=== PATIENT | male | born 1950 | race Caucasian/White ===

== ENCOUNTER 2018-11-30 04:59 | Inpatient (IN) ==
--- NOTE | 2018-11-20 18:38 | PAT Medication Instructions ---
Medication Instructions Date of Service November 20, 2018 Home Medications Arginine 1 dose PO QPM Cbd Oil 1 dose PO BID D [place] 1 dose PO DAILY Ips 1 dose PO BID P5p 1 dose PO QAM Serine Powder 1 dose PO DAILY glycine 4 cap PO QAM multivitamin 1 tab PO QAM niacinamide 500 mg PO DIRECTED zinc citrate-phytase 1 dose PO QPM STOP taking 2 weeks before surgery Arginine 1 dose PO QPM D [place] 1 dose PO DAILY Ips 1 dose PO BID P5p 1 dose PO QAM Serine Powder 1 dose PO DAILY glycine 4 cap PO QAM niacinamide 500 mg PO DIRECTED zinc citrate-phytase 1 dose PO QPM DO NOT take the morning of surgery multivitamin 1 tab PO QAM Take morning of surgery With a small sip of water, OTHERWISE NOTHING TO EAT OR DRINK AFTER MIDNIGHT: Cbd Oil 1 dose PO BID (stop 4 hours before surgery) Take evening before surgery Cbd Oil 1 dose PO BID Other Notes If you have any questions please call us at [phone] or [phone] or [phone] or [phone]
--- NOTE | 2018-11-21 13:59 | Anesthesiology Consultation ---
Date of Service November 21, 2018 Assessment & Plan (1) Encounter for pre-operative examination: Chart Review Chart Review: Acceptable Risk for Surgery and Patient seen in Pre Admission Testing Consults Requested none Teaching & Discussion Pre-Anesthesia Teaching/Discussion Notes: Instructed NPO after midnight before surgery, except medications with 15 cc of water. Medication instructions provided according to the PAT guidelines. History Surgery Operation Date: 11/30/18 08:20 Proposed Procedures p Left Total Hip Arthroplasty - Terry Roland MD Height/Weight Height: 5 ft 10 in Weight: 79.9 kg Allergies Allergy/AdvReac Type Severity Reaction Status Date / Time No Known Allergies Allergy Verified 11/09/18 10:22 Medications Home Medications Medication Instructions Recorded Confirmed Last Taken Arginine 1 dose PO QPM 11/09/18 11/09/18 Unknown Cbd Oil 1 dose PO BID 11/09/18 11/09/18 Unknown D [place] 1 dose PO DAILY 11/09/18 11/09/18 Unknown Ips 1 dose PO BID 11/09/18 11/09/18 Unknown P5p 1 dose PO QAM 11/09/18 11/09/18 Unknown Serine Powder 1 dose PO DAILY 11/09/18 11/09/18 Unknown glycine 4 cap PO QAM 11/09/18 11/09/18 Unknown multivitamin 1 tab PO QAM 11/09/18 11/09/18 Unknown niacinamide 500 mg PO UD 11/09/18 11/09/18 Unknown zinc citrate-phytase 1 dose PO QPM 11/09/18 11/09/18 Unknown Past Medical History Medical History Cognitive impairment [place] to be due to previous testing for prostate cancer per his trimmer sorter Degenerative disc disease Diverticular disease Prostate cancer s/p radioactive seed implants Past Surgical History Surgical History History of anesthesia reaction slow to wake History of colonoscopy History of fusion of cervical spine ROM WNL History of herniorrhaphy umbilical and rt inguinal History of oral surgery History of prostate biopsy History of tooth extraction Past Anesthesia History No Hx of Anesthesia Complications (A little slow to wake after hernia repair. ) and No Family Hx of Anesthesia Complications (Dad had hallucinations after anesthesia) History of PONV No Motion Sickness Screening History of Motion Sickness: No Social History Smoking Status: Never smoker Do You Dip or Chew Tobacco: No Hx Alcohol Use: Yes alcohol intake frequency: holidays/special occasions only Hx Substance Use: No substance use type: does not use Exercise / Class Metabolic Activity II 4-5 Yardwork/Stairs/Walk up hill (Able to climb stairs. Denies CP or SOB. ) Review of Systems Patient denies chest pain, shortness of breath, dyspnea on exertion, reflux, cough, wheezing, palpitations. +joint pain (hip) Physical Exam Vital Signs BP: 124/78 P: 70 R: 14 T: 98.2 SPO2: 96% on RA ENMT Thyromental Distance: > or= 3.5 Finger Breadths (3.5) Mallampati Class: II Neck normal visual inspection and trachea midline; neck extension not limited Respiratory normal respiratory effort Auscultation: lungs clear to auscultation bilaterally Cardiovascular Rate/Rhythm: regular rate and regular rhythm Heart Sounds: no murmur Vessels: no carotid bruit Neurologic moves all extremities Psychiatric Orientation: alert and oriented x 3 Testing Electrocardiogram Date: 11/21/18 Findings: + NSR @ (65) Chest X-Ray Date: 11/21/18 Findings: + NAD Echocardiogram Date: 01/12/16 EF: 61% LV Function: normal RWMA: + none Valvular Disease: + no significant valvular disease and + MR (Trivial) Trivial Tricuspid Insufficiency. Stress Test Date: 01/19/16 Type: exercise Findings: + WNL Resting EF: 67% Exercise stress administered by the physician. Technetium - sestamibi was also administered. SPECT images were obtained in numerous axes. Lang study was performed with the stress examination and careful evaluation of the wall motion was performed. Resting EKG was normal. Target HR was 140. MPHR was 157. Cardiorespiratory fitness would be considered good. IMPRESSION: 1. Normal Study. No evidence of myocardial necrosis or stress induced ischemia, and no transient ischemic dilatation of the left ventricular cavity with stress. 2. The global EF of the LV is 67%. CONCLUSION: -The patient is able to exercise to target HR with some J-point depression during the study, but with slowly upsloping ST segments which would be considered negative for coronary ischemia and a low probablitity of significant coronary artery disease. His BP response to exercise is normal. Laboratory Results 11/21/18 13:35 11/21/18 13:35 Blood Type A Positive 11/21/18 13:35 Antibody Screen NEGATIVE 11/21/18 13:35 PT 10.6 Seconds (9.0-12.0) 11/21/18 13:35 INR 1.1 (0.9-1.1) 11/21/18 13:35 APTT 26.8 Seconds (21.0-31.0) 11/21/18 13:35 Hemoglobin A1c 5.7 % (4.5-5.6) H 11/21/18 13:35 Urine Color Yellow 11/21/18 Unknown Urine Appearance Clear (Clear) 11/21/18 Unknown Urine pH 6.0 (4.5-7.5) 11/21/18 Unknown Ur Specific [place] 1.023 (1.000-1.030) 11/21/18 Unknown Urine Protein Negative (Negative) 11/21/18 Unknown Urine Glucose (UA) Negative (Negative) 11/21/18 Unknown Urine Ketones Negative (Negative) 11/21/18 Unknown Urine Nitrite Negative (Negative) 11/21/18 Unknown Ur Leukocyte Esterase Negative (Negative) 11/21/18 Unknown Urine WBC (Auto) 1-5 /hpf (0-5) 11/21/18 Unknown Urine RBC (Auto) 5-10 /hpf (0-4) H 11/21/18 Unknown U Hyaline Cast (Auto) 0 /lpf (0-5) 11/21/18 Unknown U Epithel Cells (Auto) 0-5 /lpf (0-5) 11/21/18 Unknown Urine Bacteria (Auto) Negative (Negative) 11/21/18 Unknown 11/21/18 Unknown Urine Culture - Preliminary Urine,Clean Catch No growth - Less than 1,000 colonies/mL, Final report to follow.
[2018-11-21 14:16] LABS: Basophils # (auto) 0.02 K/uL (0-0.2); Basophils % (auto) 0.4 %; Eosinophils # (auto) 0.08 K/uL (0-0.5); Eosinophils % (auto) 1.6 %; Hematocrit (blood only) 43.3 % (42-52); Hemoglobin 14.4 g/dL (14.0-18.0); Immature Granulocytes # (auto) 0.04 K/uL (0.00-0.02); Immature Granulocytes % (auto) 0.8 %; Lymphocytes # (auto) 1.42 K/uL (1.2-3.4); Lymphocytes % (auto) 28.3 %; Mean Corpuscular Hgb Conc 33.3 g/dL (32-36); Mean Corpuscular Volume 89.6 fL (80-100); Mean Platelet Volume 10.2 fL (7.4-10.4); Monocytes # (auto) 0.26 K/uL (0.11-0.59); Monocytes % (auto) 5.2 %; Neutrophils % (auto) 63.7 %; Platelet Count 221 K/uL (130-400); RDW Coefficient of Variation 13.9 % (11.5-14.5); RDW Standard Deviation 45.8 fL (36.4-46.3); Red Blood Count 4.83 M/uL (4.7-6.1); White Blood Count 5.02 K/uL (4.8-10.8)
[2018-11-21 14:29] LABS: Appearance Urine Clear (Clear); Bacteria Urine Automated Negative (Negative); Bilirubin Urine Negative (Negative); Cast Urine Automated 0 /lpf (0-5); Color Urine Yellow; Epithelial Cell Urine Auto 0-5 /lpf (0-5); Glucose Urine UA Negative (Negative); Ketones Urine Negative (Negative); Leukocyte Esterase Urine Negative (Negative); Nitrite Urine Negative (Negative); Protein Urine Negative (Negative); Specific Gravity Urine 1.023 (1.000-1.030); Urobilinogen Urine Negative (Negative)
[2018-11-21 14:35] LABS: Estimated Average Glucose 117 mg/dl
[2018-11-21 14:36] LABS: INR 1.1 (0.9-1.1); Partial Thromboplastin Time 26.8 Seconds (21.0-31.0); Prothrombin Time 10.6 Seconds (9.0-12.0)
--- NOTE | 2018-11-21 14:40 | XRay Report ---
XR chest Pre-admission PA/Lat HISTORY: Preop. COMPARISON: None. FINDINGS: The lungs are clear. Cardiac silhouette is normal in size. No pleural effusions. No pneumot horax. IMPRESSION: No acute process. Electronically signed by: Filemon Zaman M.D. 11/21/2018 2:39 PM
[2018-11-21 16:00] LABS: Albumin Level 3.5 gm/dl (3.4-5.0); BUN Creatinine Ratio 18.1 (10-20); Calcium 8.6 mg/dl (8.5-10.1); Creatinine Clr Calc Pharmacy 75.8 ml/min; Est GFR (African American) 91.6
--- NOTE | 2018-11-29 13:39 | History and Physical Report ---
DATE OF ADMISSION: 11/30/2018 CHIEF COMPLAINT: Left hip pain. HISTORY OF PRESENT ILLNESS: The patient is a 68-year-old male with known osteoarthritis about his left hip. He has been taken meloxicam for some time, but continues to have pain and disability with activities of daily living. He has pain with prolonged weightbearing and standing activities. He has difficulty with any kneeling, bending, or squatting activities. Due to ongoing pain and disability, he now desires to proceed with left total hip arthroplasty. PAST MEDICAL HISTORY: Prostate cancer. PAST SURGICAL HISTORY: Hernia surgery, prostate implants. MEDICATIONS: None. He takes a lot of [id number] medications. ALLERGIES: PENICILLIN IN CHILDHOOD. SOCIAL HISTORY AND REVIEW OF SYSTEMS: Noncontributory. PHYSICAL EXAMINATION: GENERAL: Well-nourished, well-developed male who appears stated age. HEENT: Normocephalic, atraumatic, extraocular movements intact, oropharynx pink and moist. NECK: Supple without adenopathy. LUNGS: Clear to auscultation bilaterally. HEART: Regular rate and rhythm. ABDOMEN: Soft, nontender, nondistended. EXTREMITIES: The upper extremities are within normal limits. Left hip demonstrates limited range of motion. There is limitation of active and passive internal/external rotation with pain at end range. X-RAYS: X-rays were reviewed. He has severe osteoarthritis about the left hip with complete loss of the joint space. There are large osteophytes about the femoral head. There is deformation about the femoral head. ASSESSMENT: Left hip degenerative joint disease. PLAN: Risks versus benefits were discussed, consent was obtained. The patient's primary care physician is Dr. Raghu Saez from [facility]. We will proceed with left total hip arthroplasty as indicated.
[2018-11-30] MEDS: LR 500ML BOLUS, THEN 15ML/HR IV SCH ×3 (05:40→09:51)
[2018-11-30] MEDS ORDERED: CeleBREX 200 MG CAP PO SCH (06:00)
[2018-11-30] MEDS ORDERED: CEFAZOLIN 2000MG 2,000 MG/15 ML SYR IV SCH (06:00)
[2018-11-30] MEDS ORDERED: ACETAMINOPHEN 500 MG TAB PO SCH (06:00)
[2018-11-30] MEDS ORDERED: ROPIVACAINE 0.5% HCL/PF 150 MG, BUPIVACAINE 0.5% MPF 30 ML, EPINEPHrine 30MG/30ML (OR U... INFIL SCH (06:00)
[2018-11-30] MEDS ORDERED: dexAMETHasone 4 MG TAB PO SCH (06:00)
[2018-11-30] MEDS ORDERED: TRANEXAMIC ACID 1,000 MG **IV Pre-op IV SCH (06:00)
[2018-11-30] MEDS ORDERED: VANCOMYCIN HCL 1,250 MG in SODIUM CHLORIDE 0.9% 250 ML IV SCH (06:00)
[2018-11-30] MEDS ORDERED: GABAPENTIN 300 MG PO SCH (06:00)
[2018-11-30] MEDS ORDERED: CEFAZOLIN 1000MG 1,000 MG/7.5 ML SYR IV SCH (06:00)
[2018-11-30] MEDS ORDERED: TRANEXAMIC ACID 1,000 MG **IV Intra-op IV SCH (06:30)
[2018-11-30] MEDS ORDERED: BUPIVACAINE 0.5 % 5 MG/1 ML PF 10ML VIAL ONE (06:31)
[2018-11-30] MEDS ORDERED: BACITRACIN INJ 50,000 UNIT VIAL ONE (06:32)
[2018-11-30] MEDS ORDERED: ORTHO JOINT ANESTHETIC ONE (06:32)
[2018-11-30] MEDS ORDERED: POVIDONE-IODINE OP SOLN 30 ML BTL ONE (06:32)
[2018-11-30] MEDS ORDERED: HYDROmorphone INJ 2 MG/ML SYR/VIAL IV PRN (06:44)
[2018-11-30] MEDS ORDERED: ePHEDrine sulfate 50 MG/ML AMP IV PRN (06:44)
[2018-11-30] MEDS ORDERED: ATROPINE SULFATE 0.1 MG/ML 10ML SYR IV PRN (06:44)
[2018-11-30] MEDS ORDERED: MIDAZOLAM HCL 1 MG/ML 2ML VIAL ONE ×2 (06:47→07:23)
[2018-11-30] MEDS ORDERED: fentaNYL citrate 100 MCG/2 ML VIAL ONE (06:47)
--- NOTE | 2018-11-30 07:05 | History & Physical Bridge Note ---
Date of Service November 30, 2018 History & Physical Bridge Note I have examined the patient, reviewed the History & Physical and in the interval since the performance of the History & Physical I have noted the following changes of clinical significance: no changes noted
[2018-11-30] MEDS ORDERED: ePHEDrine sulfate 50 MG/ML SYR ONE (07:41)
[2018-11-30] MEDS ORDERED: PROPOFOL IV EMULSION 10 MG/ML 20 ML VIAL IV ONE (07:41)
[2018-11-30] MEDS ORDERED: LIDOCAINE HCL 2% 2 ML VIAL/AMP(20MG/ML) INFIL ONE (07:41)
--- NOTE | 2018-11-30 08:08 | Operative Report ---
Post Operative Report Pre & Post Diagnosis Operation Date: 11/30/18 07:00 Pre-Op Diagnosis: Left Hip Degenerative Joint Disease Post-Op Diagnosis: Left Hip Degenerative Joint Disease Procedure Operation Date: 11/30/18 07:00 Actual Procedures p Left Total Hip Arthroplasty, Uncemented(Left) - Terry Roland MD Surgeon Terry Roland MD Public Services Assistant Arnold Estimated Blood Loss 100 Findings Consistent with Post-Op Diagnosis Specimens Femoral head Anesthesia Type Spinal Complications none Disposition Accompanied Patient To Recovery: No Disposition: Recovery Room Indications Hip pain Description of Procedure Patient was placed in the right lateral decubitus position and the left hip was prepped and draped in the usual sterile manner. A click along the back incision was made subcutaneous tissue was sharply dissected electrocautery was used for hemostasis. Fascia was incised throughout the length of the wound and the short external rotators were divided from the posterior aspect of the femur using electrocautery. A T capsulotomy incision was created and the hip was dislocated. The femoral neck was just osteotomized at the appropriate level using the oscillating saw and was removed. Next retractors were placed and the acetabulum was exposed. Labrum and capsule were removed and sequential reamings were good exposure of subchondral bone. The 6 femoral cup was impacted and held using a single cancellous bone screw. The elevated posterior wall liner was placed and attention was turned to the femur. A box osteotome was used to gain access to the femoral canal. A T-handled canal finder was utilized and sequential aspirins were taken up to a size 6 which gave good fit and fill. Trial reduction was carried out in a +25 femoral neck length was chosen size to be used. The final stem and head were impacted in position and the hip was located. Found to be exceptionally stable. The periarticular injection was carried out and the piriformis was reattached to the trochanter using a #1 Vicryl. The wound was again thoroughly irrigated and in the drain was placed in the fascia was closed using #1 Vicryl. Betadine soap was utilized. Fascia was closed #1 Vicryl. Suture subcutaneous tissue was closed using 0 Dexon skin was closed with 0 plain. Sterile dressing of Adaptic 4 x 4' s ABDs and foam tape was applied. Patient tolerated procedure well I attest to the content of the Intraoperative Record and any orders documented therein. Any exceptions are noted below.
[2018-11-30] MEDS ORDERED: BISACODYL 10 MG SUPP PR PRN ×2 (08:56→09:42)
[2018-11-30] MEDS ORDERED: MAGNESIUM HYDROXIDE SUSP 30 ML UDC PO PRN ×2 (08:56→09:42)
[2018-11-30] MEDS ORDERED: ONDANSETRON INJ 2 MG/ML 2 ML VIAL IV PRN ×2 (08:56→09:42)
[2018-11-30] MEDS ORDERED: ALUMINUM/MAGNESIUM SUSP 30 ML UDC PO PRN (08:56)
--- NOTE | 2018-11-30 09:37 | XRay Report ---
XR pelvis 1-2V routine CLINICAL HISTORY: Postoperative examination COMPARISON: None. DISCUSSION: There are postsurgical changes of a total left hip arthroplasty. There is no dislocation. There are no acute fractures. There is gas within soft tissues consistent with recent surgery. There is an overlying surgical drain. Incidental note is made of prostate implant radiation therapy seeds. There is also evidence for prior hernia mesh repair. IMPRESSION: Postsurgical changes of a total left hip arthroplasty. No evidence of dislocation Electronically signed by: Mehdi Alex M.D. 11/30/2018 9:36 AM
[2018-11-30] MEDS ORDERED: DOCUSATE SODIUM 100 MG CAP PO SCH (09:42)
[2018-11-30] MEDS ORDERED: MULTIVITAMIN TAB PO SCH (09:42)
[2018-11-30] MEDS ORDERED: HYDROmorphone INJ 0.5 MG/0.5 ML SYR IV PRN (09:42)
[2018-11-30] MEDS ORDERED: NALOXONE HCL 0.4 MG/1 ML VIAL/CARP IV PRN (09:42)
[2018-11-30] MEDS ORDERED: SODIUM CHLORIDE 0.9% 1000ML 1,000 ML IV SCH ×2 (09:42)
[2018-11-30] MEDS ORDERED: METOCLOPRAMIDE HCL INJ 5 MG/ML 2 ML VIAL IV PRN (09:42)
[2018-11-30] MEDS: DOCUSATE SODIUM 100 MG CAP PO SCH ×2 (10:53→20:47)
--- NOTE | 2018-11-30 11:06 | Anesthesiology Progress Note ---
Date of Service November 30, 2018 Anesthesia Post Procedure Vital Signs Vital Signs: Temp Pulse Pulse Resp BP Pulse Ox 11/30/18 10:56 36.3 C L 11/30/18 10:10 34.2 C L 62 18 124/82 99 11/30/18 09:45 65 18 119/76 100 11/30/18 08:55 36.8 C 62 16 106/68 99 11/30/18 08:45 65 16 106/66 98 11/30/18 08:35 68 16 104/64 100 11/30/18 08:27 37.1 C 68 16 97/65 L 100 11/30/18 05:46 36.8 C 61 20 155/94 H 98 Pain Intensity Left Hip: Pain Intensity: 2 Notes Mental Status: alert / awake / arousable Patient Amnestic to Procedure: Yes Nausea / Vomiting: adequately controlled Pain: adequately controlled Airway Patency, RR, SpO2: stable & adequate BP & HR: stable & adequate Hydration State: stable & adequate Anesthetic Complications: no major complications apparent and Pt Satisfied with anesthetic care
[2018-11-30] MEDS: MULTIVITAMIN TAB PO SCH (11:46)
[2018-11-30] MEDS: CEFAZOLIN 2000MG 2,000 MG/15 ML SYR IV SCH ×2 (14:25→21:43)
[2018-11-30] MEDS: ACETAMINOPHEN 500 MG TAB PO SCH ×2 (14:25→21:44)
[2018-11-30] MEDS ORDERED: PNEUMOCOCCAL POLYSACCHARIDES 25 MCG/0.5 ML VIAL/SYR IM ONE (14:30)
[2018-11-30] MEDS ORDERED: INFLUENZA VACCINE HIGH DOSE 65+ 0.5 ML SYR IM ONE (14:30)
[2018-11-30] MEDS ORDERED: INFLUENZA ADMINISTRATION CHARGE ONE (14:30)
[2018-11-30] MEDS ORDERED: PNEUMOCOCCAL ADMINISTRATION CHARGE ONE (14:30)
[2018-11-30] MEDS: ASPIRIN 81 MG ECTAB PO SCH (20:47)
[2018-11-30] MEDS ORDERED: SENNA 8.6 MG TAB PO SCH ×2 (21:00)
[2018-11-30] MEDS: OXYCODONE HCL IR 5 MG TAB (IMMEDIATE RELEASE) PO PRN (22:03)
[2018-12-01] MEDS: OXYCODONE HCL IR 5 MG TAB (IMMEDIATE RELEASE) PO PRN (00:05)
[2018-12-01] MEDS: ACETAMINOPHEN 500 MG TAB PO SCH (05:39)
[2018-12-01] MEDS: CEFAZOLIN 2000MG 2,000 MG/15 ML SYR IV SCH (05:39)
[2018-12-01 06:59] LABS: Hematocrit (blood only) 37.5 % (42-52); Hemoglobin 12.6 g/dL (14.0-18.0); Immature Granulocytes # (auto) 0.04 K/uL (0.00-0.02); Immature Granulocytes % (auto) 0.3 %; Lymphocytes # (auto) 1.28 K/uL (1.2-3.4); Lymphocytes % (auto) 10.2 %; Mean Corpuscular Hgb Conc 33.6 g/dL (32-36); Mean Corpuscular Volume 89.3 fL (80-100); Mean Platelet Volume 10.5 fL (7.4-10.4); Monocytes # (auto) 1.19 K/uL (0.11-0.59); Monocytes % (auto) 9.5 %; Neutrophils # (auto) 10.06 K/uL (1.4-6.5); Platelet Count 188 K/uL (130-400); RDW Coefficient of Variation 14.1 % (11.5-14.5); RDW Standard Deviation 46.1 fL (36.4-46.3); White Blood Count 12.57 K/uL (4.8-10.8)
[2018-12-01 07:36] LABS: Albumin Level 3.1 gm/dl (3.4-5.0); BUN Creatinine Ratio 17.3 (10-20); Calcium 8.3 mg/dl (8.5-10.1); Creatinine Clr Calc Pharmacy 70.6 ml/min; Est GFR (African American) 82.5; Est GFR (Non-African American) 71.1; Phosphorus 3.1 mg/dl (2.5-4.9); Potassium 3.9 mmol/L (3.5-5.1)
--- NOTE | 2018-12-01 07:39 | Anesthesiology Progress Note ---
Date of Service December 01, 2018 Anesthesia Post Procedure Vital Signs Vital Signs: Temp Pulse Pulse Resp BP Pulse Ox 12/01/18 03:05 36.8 C 57 L 14 126/69 97 11/30/18 23:28 36.7 C 61 16 129/73 96 11/30/18 19:00 36.7 C 78 18 115/61 97 11/30/18 15:02 36.9 C 78 18 109/62 96 11/30/18 12:14 36.7 C 67 17 105/69 95 11/30/18 11:12 36.3 C L 73 18 110/73 96 11/30/18 10:56 36.3 C L 11/30/18 10:10 34.2 C L 62 18 124/82 99 11/30/18 09:45 65 18 119/76 100 11/30/18 09:15 62 14 116/75 100 11/30/18 08:55 36.8 C 62 16 106/68 99 11/30/18 08:45 65 16 106/66 98 11/30/18 08:35 68 16 104/64 100 11/30/18 08:27 37.1 C 68 16 97/65 L 100 Pain Intensity Left Hip: Pain Intensity: 2 Notes Mental Status: alert / awake / arousable and participated in evaluation Patient Amnestic to Procedure: Yes Nausea / Vomiting: adequately controlled Pain: adequately controlled Airway Patency, RR, SpO2: stable & adequate BP & HR: stable & adequate Hydration State: stable & adequate Anesthetic Complications: no major complications apparent and Pt Satisfied with anesthetic care
[2018-12-01] MEDS: DOCUSATE SODIUM 100 MG CAP PO SCH (08:37)
[2018-12-01] MEDS: MULTIVITAMIN TAB PO SCH (08:37)
[2018-12-01] MEDS: ASPIRIN 81 MG ECTAB PO SCH (08:37)
--- NOTE | 2018-12-01 09:29 | Orthopedic Progress Note ---
Date of Service December 01, 2018 Assessment & Plan (1) Status post total replacement of left hip: PT and OT protocols today. Continue DVT prophylaxis with aspirin, SCDs, JULIANNA hose. Pain management with Tylenol and oxycodone and hydromorphone. Patient states that he has not needed much of anything in the way of pain medications during his stay. If patient is independent with his PT and OT protocols, we will plan on discharge to home today. Subjective Postop day 1 status post left total hip arthroplasty. Patient is currently sitting up in his chair at the bedside. His is with him. He states that he is feeling well and has no complaints. Pain is controlled. He denies shortness of breath, chest pain, lightheadedness, calf tenderness. He is hoping to go home today. Physical Exam 2 Vital Signs (Past 24 Hours): Last Vital Signs Temp 37.2 C 12/01/18 08:00 Pulse 57 L 12/01/18 08:00 Resp 16 12/01/18 08:00 BP 148/78 H 12/01/18 08:00 Pulse Ox 99 12/01/18 08:00 Physical Exam: Patient is readily able to get out of the chair on his own. He is able to stand without help. Dressings are clean dry and intact and Hemovac is functioning. Thigh is soft and nontender. Calves are soft and nontender. Neurovascular is intact. Toes are mobile. He has good dorsiflexion plantarflexion of the left foot. Hip is located. Results & Data Laboratory Results 12/01/18 12/01/18 11/30/18 Range/Units 06:32 06:32 05:19 WBC 12.57 H (4.8-10.8) K/uL RBC 4.20 L (4.7-6.1) M/uL Hgb 12.6 L (14.0-18.0) g/dL Hct 37.5 L (42-52) % MCV 89.3 (80-100) fL MCH 30.0 (25-34) pg MCHC 33.6 (32-36) g/dL RDW Std Deviation 46.1 (36.4-46.3) fL RDW Coeff of Sil 14.1 (11.5-14.5) % Plt Count 188 (130-400) K/uL MPV 10.5 H (7.4-10.4) fL Immature Gran % (Auto) 0.3 % Neut % (Auto) 80.0 % Lymph % (Auto) 10.2 % [place] % (Auto) 9.5 % Eos % (Auto) 0.0 % Baso % (Auto) 0.0 % Immature Gran # (Auto) 0.04 H (0.00-0.02) K/uL Neut # (Auto) 10.06 H (1.4-6.5) K/uL Lymph # (Auto) 1.28 (1.2-3.4) K/uL [place] # (Auto) 1.19 H (0.11-0.59) K/uL Eos # (Auto) 0.00 (0-0.5) K/uL Baso # (Auto) 0.00 (0-0.2) K/uL Sodium 140 (136-145) mmol/L Potassium 3.9 (3.5-5.1) mmol/L Chloride 107 (98-107) mmol/L Carbon Dioxide 26 (21-32) mmol/L Anion Gap 7.0 (3-11) BUN 19 H (7-18) mg/dl Creatinine 1.08 (0.6-1.4) mg/dl Est Cr Clr Drug Dosing 70.6 ml/min Est GFR ( Amer) 82.5 Est GFR (Non-Af Amer) 71.1 BUN/Creatinine Ratio 17.3 (10-20) Glucose 110 H (70-99) mg/dl Calcium 8.3 L (8.5-10.1) mg/dl Phosphorus 3.1 (2.5-4.9) mg/dl Albumin 3.1 L (3.4-5.0) gm/dl Hepatitis C Ab Screen Neg (Neg)
--- NOTE | 2018-12-04 20:12 | Discharge Summary ---
DISCHARGE DIAGNOSIS: Degenerative joint disease, left hip. SECONDARY DIAGNOSIS: Prostate cancer in the past. CONSULTS: None. COMPLICATIONS: None. PROCEDURES: Left total hip arthroplasty performed by Dr. Roland on 11/30/2018. BRIEF HISTORY: As dictated in history and physical. HOSPITAL SUMMARY: The patient was admitted on the above date and had the above-noted surgery performed, which she tolerated well. On the first postoperative day, he was currently sitting up in his chair at the bedside. His was with him. He stated that he was feeling well and had no complaints. Pain was controlled. He denies shortness of breath, chest pain, or lightheadedness or calf tenderness and he was hoping to go home that day. Vital signs were stable. He was afebrile. The patient was readily able to get out of his chair on his own. He was standing at the bedside without help. Dressings were clean, dry, and intact and Hemovac was functioning. Thigh was soft, nontender. Calves were soft, nontender. Neurovascularly intact. Toes were mobile and he had acute dorsiflexion, plantar flexion of the left foot. Hip was located. Hemoglobin was 12.6. He progressed well with his physical therapy and was remaining stable and so it was felt he could be discharged to home on 12/01/2018. For further review, please see chart. LABORATORY AND X-RAY DATA: As per chart. DISCHARGE INSTRUCTIONS: The patient was discharged home in satisfactory condition on 12/01/2018. DIET: Regular. ACTIVITY: Weightbearing as tolerated left lower extremity with walker. Follow [facility] instruction sheets and special care instructions as noted. Follow up with Dr. Roland in 2 weeks. The patient to call for appointment if one has been not made for you. DISCHARGE MEDICATIONS: Acetaminophen 1000 mg p.o. q. 8 hours, aspirin 81 mg p.o. b.i.d., cefadroxil 500 mg p.o. b.i.d., oxycodone 5 mg p.o. q. 4-6 hours p.r.n. Resume home meds as listed.
--- NOTE | 2018-12-11 07:55 | Operative Report ---
DATE OF OPERATION: 11/30/2018 ADDENDUM Triston Barrett PA-C was the real estate assistant, he was essential for all portions of the case including positioning, prepping, draping, portfolio assistant, wound closure and dressing application. I attest to the content of the Intraoperative Record and any orders documented therein. Any exception s are noted below.
== END 2018-12-01 12:00 | disposition home health service (06) | DRG 470 ==
LOC: ASU 04:59 → 3E 08:43
DX: M16.12 Unilateral primary osteoarthritis, left hip; Z85.46 Personal history of malignant neoplasm of prostate